=== PATIENT | female | born 1960 | race Caucasian/White ===

== ENCOUNTER 2017-01-26 20:26 | Emergency (ER) | payer BC ==
[~2017-01-26] VITALS: Ht 154.9 cm; Wt 90.5 kg
[2017-01-26 20:29] VITALS: TEMP 99.3
[2017-01-26] MEDS ORDERED: ZOCOR5 MG PO (20:34)
[2017-01-26 21:08] LABS: PH 6 (5-8); SQUAMOUS EPITHELIAL None Seen /hpf; URINE APPEARANCE Clear; URINE BACTERIA Rare /hpf; URINE BILIRUBIN Negative (NEGATIVE); URINE BLOOD 3+ (NEGATIVE); URINE COLOR Amber; URINE GLUCOSE Negative (NEGATIVE); URINE KETONE Trace (NEGATIVE); URINE RBC >50 /hpf; URINE UROBILINOGEN Negative (NEGATIVE)
[2017-01-26 21:09] LABS: URINE WBC 0-2 /hpf
[2017-01-26] MEDS ORDERED: MACROBID 1100 MG/CAP PO (22:05)
[2017-01-26 22:22] VITALS: BP 135/71; PULSE 94
== END 2017-01-26 22:22 | disposition home or self-care (01) ==
LOC: COL.ER 20:26
PROVIDERS: Nurse Practitioner
DX: N30.91 Cystitis, unspecified with hematuria (principal)